=== PATIENT | female | born 1960 | race Caucasian/White ===

== ENCOUNTER 2016-09-05 13:19 | Emergency (ER) | payer SELFPAY ==
[~2016-09-05 13:19] MED LIST: BENA25TA8 PO; BUSP10 PO; HYDR25; PERM5CRE4 TOP
[2016-09-05 13:21] VITALS: BP 117/79; PULSE 99; RESP 20; TEMP 97.5; O2SAT 97
[2016-09-05] MEDS ORDERED: BUSP10TA PO (13:46)
[2016-09-05] MEDS ORDERED: HYDR-755 PO (13:46)
--- NOTE | 2016-09-05 13:53 | PD ---
HPI . nausea Chief Complaint: GI Complaint Time Seen by Provider: 13:53 Travel History International Travel<30 days: No Contact w/Intl Traveler<30days: No Traveled to known affect area: No History of Present Illness HPI 56-year-old female with no past medical history here with complaints of nausea and not feeling herself. Patient tells me that she's been under a lot of stress in dealing with personal issues for over a year and a half and has not had time to focus on herself. She says that she has lost an extreme amount of weight in a short period of time due to poor nutritional habits. Recently she has been trying to do better and drinking nutritional shakes. 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 She denies any episode of vomiting or abdominal pain. She decided to come to the emergency room as the nausea seems to bothering her. She denies any chest pain or shortness of breath. 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) Social History Alcohol Use: Yes ("SELDOM") Tobacco Use: No (NICOTINE GUM) Substance Use: No Allergies-Medications (Allergen,Severity, Reaction): Coded Allergies: No Known Allergies (Unverified , 09/05/16) Reported Meds & Prescriptions Reported Meds & Active Scripts Active Zofran Odt (Ondansetron Odt) 4 Mg Tab 4 Mg SL Q8HR PRN Reported Hydroxyzine HCl 10 Mg Tab 10 Mg PO TID PRN Buspirone (Buspirone HCl) 10 Mg Tab 10 Mg PO DAILY Review of Systems General / Constitutional: No: Fever Eyes: No: Visual changes HENT: No: Headaches Cardiovascular: No: Chest Pain or Discomfort Respiratory: No: Shortness of Breath Gastrointestinal: Positive: Nausea, No: Vomiting, Diarrhea, Abdominal Pain Genitourinary: No: Dysuria Musculoskeletal: No: Pain Skin: No Rash Neurologic: No: Weakness Psychiatric: No: Depression Endocrine: No: Polydipsia Hematologic/Lymphatic: No: Easy Bruising Physical Exam Narrative GENERAL: AAO x 3, no acute distress, thin appearing, SKIN: Warm and dry. No visible rashes or bruising. HEAD: Normocephalic and atraumatic. EYES: No scleral icterus. No injection or drainage. EOM intact, PERRLA ENT: No nasal drainage noted. Mucous membranes pink. Airway patent. Slightly dry mucous membranes NECK: Supple, trachea midline. No JVD. No lymphadenopathy CARDIOVASCULAR: Regular rate and rhythm without murmurs, gallops, or rubs. RESPIRATORY: Breath sounds equal bilaterally. No accessory muscle use. No rhonchi or rales. GASTROINTESTINAL: Abdomen soft, non-tender, nondistended. EXTREMITIES: No cyanosis or edema. BACK: Nontender without obvious deformity. No CVA tenderness. NEURO: CN II-12 intact, mining professionals strength normal b/l, UE and LE 5/5, no focal deficits PSYCH: AAO x 3, normal affect. Data Data Last Documented VS Vital Signs Date Time Temp Pulse Resp B/P Pulse Ox O2 Delivery O2 Flow Rate FiO2 09/05/16 13:21 97.5 99 20 117/79 97 Room Air Orders Complete Blood Count With Diff (09/05/16 13:57) Comprehensive Metabolic Panel (09/05/16 13:57) Urinalysis - C+S If Indicated (09/05/16 13:57) Iv Access Insert/Monitor (09/05/16 13:57) Ondansetron Inj (Zofran Inj) (09/05/16 14:00) Sodium Chlor 0.9% 1000 Ml Inj (Ns 1000 M (09/05/16 13:57) Sodium Chloride 0.9% Flush (Ns Flush) (09/05/16 14:00) Labs Laboratory Tests Test 09/05/16 09/05/16 14:05 14:15 Urine Color YELLOW Urine Turbidity CLEAR Urine pH 5.5 Urine Specific [place] 1.026 Urine Protein TRACE mg/dL Urine Glucose (UA) NEG mg/dL Urine Ketones NEG mg/dL Urine Occult Blood MOD Urine Nitrite NEG Urine Bilirubin NEG Urine Urobilinogen 2.0 MG/DL Urine Leukocyte Esterase NEG Urine RBC 7 /hpf Urine WBC 2 /hpf Urine Mucus FEW /lpf Microscopic Urinalysis Comment CULT NOT INDICATED White Blood Count 6.4 TH/MM3 Red Blood Count 4.36 MIL/MM3 Hemoglobin 13.1 GM/DL Hematocrit 39.7 % Mean Corpuscular Volume 91.0 FL Mean Corpuscular Hemoglobin 30.0 PG Mean Corpuscular Hemoglobin 33.0 % Concent Red Cell Distribution Width 13.4 % Platelet Count 192 TH/MM3 Mean Platelet Volume 8.8 FL Neutrophils (%) (Auto) 64.7 % Lymphocytes (%) (Auto) 26.9 % Monocytes (%) (Auto) 6.4 % Eosinophils (%) (Auto) 1.1 % Basophils (%) (Auto) 0.9 % Neutrophils # (Auto) 4.1 TH/MM3 Lymphocytes # (Auto) 1.7 TH/MM3 Monocytes # (Auto) 0.4 TH/MM3 Eosinophils # (Auto) 0.1 TH/MM3 Basophils # (Auto) 0.1 TH/MM3 CBC Comment DIFF FINAL Differential Comment Sodium Level 142 MEQ/L Potassium Level 3.9 MEQ/L Chloride Level 108 MEQ/L Carbon Dioxide Level 26.7 MEQ/L Anion Gap 7 MEQ/L Blood Urea Nitrogen 13 MG/DL Creatinine 0.71 MG/DL Estimat Glomerular Filtration 86 ML/MIN Rate Random Glucose 96 MG/DL Calcium Level 8.5 MG/DL Total Bilirubin 0.2 MG/DL Aspartate Amino Transf 20 U/L (AST/SGOT) Alanine Aminotransferase 26 U/L (ALT/SGPT) Alkaline Phosphatase 53 U/L Total Protein 6.3 GM/DL Albumin 3.3 GM/DL [facility] Medical Decision Making Medical Screen Exam Complete: Yes Emergency Medical Condition: Yes Medical Record Reviewed: Yes Differential Diagnosis Nausea without vomiting, anxiety, depression Narrative Course 56-year-old female here with complaints of nausea. She is under a lot of stress. I have done some labs on her. I've given her some Zofran. She also appears little dehydrated select given her some IV fluids. Examination is unremarkable. I do not suspect there will be any gross abnormalities on lab other than possible low albumin secondary her poor nutritional intake. I think a lot of her issues are possibly related to underlying depression and anxiety. Discussed normal results with patient. Low albumin and protein as suspected. Encouraged her to eat better. F/U with primary care doctor. Patient verbalized understanding of instructions, questions were answered, and thanked me for their care. I advised them if their condition worsens, please return to the nearest emergency room for further care. Diagnosis Primary Impression: Nausea Patient Instructions: General Instructions Additional Instructions: Please return to emergency department if your symptoms return or worsen. Follow up with your primary care provider. Take medications as prescribed. Med/Other Pt SpecificInfo: Prescription(s) given Scripts Ondansetron Odt (Zofran Odt)4 Mg Tab4 Mg SL Q8HR PRN (Nausea/Vomiting) #12 TAB Ref 0 Prov:Nae Kapoor MD 09/05/16 Disposition: 01 DISCHARGE HOME Condition: Stable Suyapa Muse Sep 05, 2016 13:53
[2016-09-05] MEDS ORDERED: SODIUM CHLOR 0.9% 1000 ML INJ 1,000 ML IV ONE (13:57)
[2016-09-05] MEDS ORDERED: SODIUM CHLORIDE 0.9% FLUSH 10 ML FLUSH IVF PRN (14:00)
[2016-09-05] MEDS ORDERED: ONDANSETRON HCL 4 MG/2 ML VIAL IVP ONE (14:00)
[2016-09-05 14:38] LABS: AUTOMATED NEUTROPHIL # 4.1 TH/MM3 (1.8-7.7); BASOPHIL # 0.1 TH/MM3 (0-0.2); BASOPHIL % 0.9 % (0.0-2.0); EOSINOPHIL # 0.1 TH/MM3 (0-0.4); EOSINOPHIL % 1.1 % (0.0-4.0); HEMATOCRIT 39.7 % (35.0-46.0); HEMO FLAGS DIFF FINAL; LYMPH % 26.9 % (9.0-44.0); LYMPHOCYTE # 1.7 TH/MM3 (1.0-4.8); MONO % 6.4 % (0.0-8.0); NEUT % 64.7 % (16.0-70.0); PLATELET COUNT 192 TH/MM3 (150-450); RED BLOOD COUNT 4.36 MIL/MM3 (4.00-5.30); RED CELL DISTRIBUTION WIDTH 13.4 % (11.6-17.2); WHITE BLOOD COUNT 6.4 TH/MM3 (4.0-11.0)
[2016-09-05 14:41] LABS: BLOOD, URINE MOD (NEG); COMMENT (UR) CULT NOT INDICATED; CULTURE IF INDICATED CULT NOT INDICATED; GLUCOSE,URINE NEG (NEG); KETONE, URINE NEG (NEG); MUCUS URINE FEW /lpf (OCC); NITRITE,URINE NEG (NEG); PH, URINE 5.5 (5.0-8.5); URINE COLOR YELLOW (YELLW/STRAW)
[2016-09-05 15:08] LABS: ALKALINE PHOSPHATASE 53 U/L (45-117); TOTAL BILIRUBIN ADULT 0.2 MG/DL (0.2-1.0)
[2016-09-05 15:09] LABS: ALT (GPT) 26 U/L (10-53); ANION GAP 7 MEQ/L (5-15); AST (GOT) 20 U/L (15-37); BICARBONATE 26.7 MEQ/L (21.0-32.0); BLOOD UREA NITROGEN 13 MG/DL (7-18); CHLORIDE 108 MEQ/L (98-107); GLOMERULAR FILTRATION RATE 86 ML/MIN (>89); POTASSIUM 3.9 MEQ/L (3.5-5.1); SODIUM (NA) 142 MEQ/L (136-145)
[2016-09-05] MEDS ORDERED: ZOFR4TAB3 SL (15:09)
== END 2016-09-05 15:52 | disposition home or self-care (01) ==
LOC: NEPD 13:19
DX: R11.0 Nausea (principal)
CPT/HCPCS: 80053; 81001; 85025; 96374; 99284; J2405; J7030

== ENCOUNTER 2016-10-24 06:04 | Emergency (ER) | payer SELFPAY ==
[~2016-10-24] VITALS: Ht 170.2 cm; Wt 45.0 kg
[~2016-10-24 06:04] MED LIST changes: -BENA25TA8 PO; -BUSP10 PO; +BUSP10TA PO; +HYDR-755 PO; -HYDR25; -PERM5CRE4 TOP; +ZOFR4TAB3 SL
[2016-10-24 06:15] VITALS: BP 132/82; PULSE 97; RESP 18; TEMP 98; O2SAT 95
[2016-10-24] MEDS ORDERED: SODIUM CHLORIDE 0.9% FLUSH 10 ML FLUSH IVF PRN (06:15)
[2016-10-24] MEDS ORDERED: methylPREDNISolone SOD SUCC 125 MG/2 ML VIAL IVP ONE (06:15)
[2016-10-24 06:17] VITALS: RESP 18; O2SAT 95
[2016-10-24] MEDS: RESP: ALBUTEROL 2.5 MG/IPRATROPIUM 0.5 MG NEB (SCH) INH ×2 (06:18→06:19)
--- NOTE | 2016-10-24 06:20 | PD ---
HPI Chief Complaint: Respiratory Symptoms Time Seen by Provider: 06:11 Travel History International Travel<30 days: No Contact w/Intl Traveler<30days: No Traveled to known affect area: No History of Present Illness HPI The patient is a 56-year-old female that has had a cough and shortness of breath for 4 days. She states she smokes less than one half pack a day. She comes in tonight because of shortness of breath. She was put on amoxicillin 500 mg 3 times daily yesterday. She has not had an x-ray. She denies any fever or chest pain. She does not have a nebulizer at home. 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 The temperature 98.0, pulse rate 97, respirations 18 with 95% oximetry and blood pressure 132/82. SKIN: Focused skin assessment warm/dry. HEAD: Atraumatic. Normocephalic. EYES: Pupils equal and round. No scleral icterus. No injection or drainage. ENT: No nasal bleeding or discharge. Mucous membranes pink and moist. NECK: Trachea midline. No JVD. CARDIOVASCULAR: Regular rate and rhythm. No murmur appreciated. RESPIRATORY: No accessory muscle use. Bilateral diminished breath sounds. Breath sounds equal bilaterally. GASTROINTESTINAL: Abdomen soft, non-tender, nondistended. Hepatic and splenic margins not palpable. MUSCULOSKELETAL: No obvious deformities. No clubbing. No cyanosis. No edema. NEUROLOGICAL: Awake and alert. No obvious cranial nerve deficits. Motor grossly within normal limits. Normal speech. PSYCHIATRIC: The patient is angry and initially stated she did not smoke at all but later admitted she smoked less than one half pack a day; insight and judgment normal. Data Data Last Documented VS Vital Signs Date Time Temp Pulse Resp B/P Pulse Ox O2 Delivery O2 Flow Rate FiO2 10/24/16 06:17 95 Room Air 10/24/16 06:17 18 10/24/16 06:17 97 10/24/16 06:15 98.0 132/82 Orders Complete Blood Count With Diff (10/24/16 06:11) Basic Metabolic Panel (Bmp) (10/24/16 06:11) Arterial Blood Gas (Abg) (10/24/16 06:11) Iv Access Insert/Monitor (10/24/16 06:11) Ecg Monitoring (10/24/16 06:11) Oximetry (10/24/16 06:11) Oxygen Administration (10/24/16 06:11) Chest, Pa & Lat (10/24/16 06:11) Sodium Chloride 0.9% Flush (Ns Flush) (10/24/16 06:15) Methylprednisolone So Succ Inj (Solumedr (10/24/16 06:15) Albuterol-Ipratropium Neb (Duoneb Neb) (10/24/16 06:15) Labs Laboratory Tests Test 10/24/16 10/24/16 06:21 06:25 Blood Gas Puncture Site RT BRACHIAL Blood Gas Patient Temperature 98.6 Blood Gas HCO3 24 mmol/L Blood Gas Base Excess 0.2 mmol/L Blood Gas Oxygen Saturation 92 % Arterial Blood pH 7.41 Arterial Blood Partial 40 mmHG Pressure CO2 Arterial Blood Partial 76 mmHG Pressure O2 Arterial Blood Oxygen Content 18.1 Vol % Arterial Blood 2.6 % Carboxyhemoglobin Arterial Blood Methemoglobin 1.0 % Blood Gas Hemoglobin 13.9 G/DL Oxygen Delivery Device ROOM AIR Blood Gas Inspired Oxygen 21 % White Blood Count 5.4 TH/MM3 Red Blood Count 4.63 MIL/MM3 Hemoglobin 13.7 GM/DL Hematocrit 40.6 % Mean Corpuscular Volume 87.7 FL Mean Corpuscular Hemoglobin 29.5 PG Mean Corpuscular Hemoglobin 33.7 % Concent Red Cell Distribution Width 15.9 % Platelet Count 204 TH/MM3 Mean Platelet Volume 8.4 FL Neutrophils (%) (Auto) 78.6 % Lymphocytes (%) (Auto) 11.7 % Monocytes (%) (Auto) 8.1 % Eosinophils (%) (Auto) 0.7 % Basophils (%) (Auto) 0.9 % Neutrophils # (Auto) 4.4 TH/MM3 Lymphocytes # (Auto) 0.6 TH/MM3 Monocytes # (Auto) 0.4 TH/MM3 Eosinophils # (Auto) 0.0 TH/MM3 Basophils # (Auto) 0.0 TH/MM3 CBC Comment DIFF FINAL Differential Comment MDM Medical Decision Making Medical Screen Exam Complete: Yes Emergency Medical Condition: Yes Medical Record Reviewed: Yes Differential Diagnosis Bronchitis, pneumonia, COPD with acute exacerbation, asthmaunlikely Narrative Course It is now 0650 and the patient is transferred to Dr. Daryl Vasquez. Nathaniel Deleon MD Oct 24, 2016 06:20
[2016-10-24 06:31] LABS: BLOOD GAS BASE EXCESS 0.2 mmol/L (-2-2); BLOOD GAS CARBOXYHEMOGLOBIN 2.6 % (0-4); BLOOD GAS HCO3 24 mmol/L (22-26); BLOOD GAS O2 HGB SATURATION 92 % (90-100); BLOOD GAS OXYGEN CONTENT 18.1 Vol % (12.0-20.0); BLOOD GAS PCO2 40 mmHG (38-42); BLOOD GAS PO2 76 mmHG (61-120); BLOOD GAS TOTAL HGB 13.9 G/DL (12.0-16.0); CRITICAL VALUE NO; DRAW SITE RT BRACHIAL; FIO2 21 %; NUMBER OF ARTERIAL PUNCTURES 1; OXYGEN DEVICE ROOM AIR; STAT YES; TEMP CORR TO 98.6
[2016-10-24 06:47] LABS: AUTOMATED NEUTROPHIL # 4.4 TH/MM3 (1.8-7.7); BASOPHIL % 0.9 % (0.0-2.0); EOSINOPHIL % 0.7 % (0.0-4.0); HEMATOCRIT 40.6 % (35.0-46.0); HEMO FLAGS DIFF FINAL; LYMPH % 11.7 % (9.0-44.0); LYMPHOCYTE # 0.6 TH/MM3 (1.0-4.8); MEAN CELL VOLUME 87.7 FL (80.0-100.0); MEAN CORPUSCULAR HEMOGLOBIN 29.5 PG (27.0-34.0); MEAN CORPUSCULAR HGB CONC 33.7 % (32.0-36.0); MONO % 8.1 % (0.0-8.0); NEUT % 78.6 % (16.0-70.0); PLATELET COUNT 204 TH/MM3 (150-450); RED BLOOD COUNT 4.63 MIL/MM3 (4.00-5.30); RED CELL DISTRIBUTION WIDTH 15.9 % (11.6-17.2); WHITE BLOOD COUNT 5.4 TH/MM3 (4.0-11.0)
[2016-10-24 06:55] LABS: POTASSIUM 4.1 MEQ/L (3.5-5.1)
[2016-10-24 06:59] LABS: BICARBONATE 26.6 MEQ/L (21.0-32.0)
--- NOTE | 2016-10-24 07:08 | PD ---
Physical Exam Date Seen by Provider: Oct 24, 2016 Time Seen by Provider: 07:04 Narrative The patient is a 56-year-old female who was initially evaluated by the previous physician, Dr. Deleon. Please refer to the initial history, physical, diagnostic evaluation, and treatment modality plan. The patient was signed out at 7 AM with laboratory evaluation and chest x-ray pending. Data Data Last Documented VS Vital Signs Date Time Temp Pulse Resp B/P Pulse Ox O2 Delivery O2 Flow Rate FiO2 10/24/16 07:41 94 18 112/71 95 Room Air 10/24/16 06:15 98.0 Orders Complete Blood Count With Diff (10/24/16 06:11) Basic Metabolic Panel (Bmp) (10/24/16 06:11) Arterial Blood Gas (Abg) (10/24/16 06:11) Iv Access Insert/Monitor (10/24/16 06:11) Ecg Monitoring (10/24/16 06:11) Oximetry (10/24/16 06:11) Oxygen Administration (10/24/16 06:11) Chest, Pa & Lat (10/24/16 06:11) Sodium Chloride 0.9% Flush (Ns Flush) (10/24/16 06:15) Methylprednisolone So Succ Inj (Solumedr (10/24/16 06:15) Albuterol-Ipratropium Neb (Duoneb Neb) (10/24/16 06:15) Ondansetron Inj (Zofran Inj) (10/24/16 07:15) Sodium Chlorid 0.9% 500 Ml Inj (Ns 500 M (10/24/16 07:15) Labs Laboratory Tests Test 10/24/16 10/24/16 06:21 06:25 Blood Gas Puncture Site RT BRACHIAL Blood Gas Patient Temperature 98.6 Blood Gas HCO3 24 mmol/L Blood Gas Base Excess 0.2 mmol/L Blood Gas Oxygen Saturation 92 % Arterial Blood pH 7.41 Arterial Blood Partial 40 mmHG Pressure CO2 Arterial Blood Partial 76 mmHG Pressure O2 Arterial Blood Oxygen Content 18.1 Vol % Arterial Blood 2.6 % Carboxyhemoglobin Arterial Blood Methemoglobin 1.0 % Blood Gas Hemoglobin 13.9 G/DL Oxygen Delivery Device ROOM AIR Blood Gas Inspired Oxygen 21 % White Blood Count 5.4 TH/MM3 Red Blood Count 4.63 MIL/MM3 Hemoglobin 13.7 GM/DL Hematocrit 40.6 % Mean Corpuscular Volume 87.7 FL Mean Corpuscular Hemoglobin 29.5 PG Mean Corpuscular Hemoglobin 33.7 % Concent Red Cell Distribution Width 15.9 % Platelet Count 204 TH/MM3 Mean Platelet Volume 8.4 FL Neutrophils (%) (Auto) 78.6 % Lymphocytes (%) (Auto) 11.7 % Monocytes (%) (Auto) 8.1 % Eosinophils (%) (Auto) 0.7 % Basophils (%) (Auto) 0.9 % Neutrophils # (Auto) 4.4 TH/MM3 Lymphocytes # (Auto) 0.6 TH/MM3 Monocytes # (Auto) 0.4 TH/MM3 Eosinophils # (Auto) 0.0 TH/MM3 Basophils # (Auto) 0.0 TH/MM3 CBC Comment DIFF FINAL Differential Comment Sodium Level 140 MEQ/L Potassium Level 4.1 MEQ/L Chloride Level 106 MEQ/L Carbon Dioxide Level 26.6 MEQ/L Anion Gap 7 MEQ/L Blood Urea Nitrogen 8 MG/DL Creatinine 0.65 MG/DL Estimat Glomerular Filtration 95 ML/MIN Rate Random Glucose 95 MG/DL Calcium Level 8.8 MG/DL [facility] Medical Record Reviewed: Yes Supervised Visit with CHARANJIT: No Interpretation(s) Chest x-ray reveals marked hyperinflation without infiltrate, pneumothorax, or failure. Laboratory Tests Test 10/24/16 10/24/16 06:21 06:25 Blood Gas Puncture Site RT BRACHIAL Blood Gas Patient Temperature 98.6 Blood Gas HCO3 24 mmol/L Blood Gas Base Excess 0.2 mmol/L Blood Gas Oxygen Saturation 92 % Arterial Blood pH 7.41 Arterial Blood Partial 40 mmHG Pressure CO2 Arterial Blood Partial 76 mmHG Pressure O2 Arterial Blood Oxygen Content 18.1 Vol % Arterial Blood 2.6 % Carboxyhemoglobin Arterial Blood Methemoglobin 1.0 % Blood Gas Hemoglobin 13.9 G/DL Oxygen Delivery Device ROOM AIR Blood Gas Inspired Oxygen 21 % White Blood Count 5.4 TH/MM3 Red Blood Count 4.63 MIL/MM3 Hemoglobin 13.7 GM/DL Hematocrit 40.6 % Mean Corpuscular Volume 87.7 FL Mean Corpuscular Hemoglobin 29.5 PG Mean Corpuscular Hemoglobin 33.7 % Concent Red Cell Distribution Width 15.9 % Platelet Count 204 TH/MM3 Mean Platelet Volume 8.4 FL Neutrophils (%) (Auto) 78.6 % Lymphocytes (%) (Auto) 11.7 % Monocytes (%) (Auto) 8.1 % Eosinophils (%) (Auto) 0.7 % Basophils (%) (Auto) 0.9 % Neutrophils # (Auto) 4.4 TH/MM3 Lymphocytes # (Auto) 0.6 TH/MM3 Monocytes # (Auto) 0.4 TH/MM3 Eosinophils # (Auto) 0.0 TH/MM3 Basophils # (Auto) 0.0 TH/MM3 CBC Comment DIFF FINAL Differential Comment Sodium Level 140 MEQ/L Potassium Level 4.1 MEQ/L Chloride Level 106 MEQ/L Carbon Dioxide Level 26.6 MEQ/L Anion Gap 7 MEQ/L Blood Urea Nitrogen 8 MG/DL Creatinine 0.65 MG/DL Estimat Glomerular Filtration 95 ML/MIN Rate Random Glucose 95 MG/DL Calcium Level 8.8 MG/DL Differential Diagnosis Differential diagnosis includes bronchitis, pneumonia, ACS, congestive heart failure, pulmonary embolism, pleural effusion, URI, viral syndrome. Narrative Course The patient was initially evaluated by the previous physician, Dr. Deleon. Please refer to the initial history, physical, diagnostic evaluation, and treatment modality plan. The patient was signed out at 7 AM with laboratory evaluation and chest x-ray pending. The patient's blood work was unremarkable. The patient states that her primary physician, Dr. Jansen, called her in a prescription for cough medicine and an antibiotic, amoxicillin yesterday. The patient started amoxicillin yesterday. The patient did have mild nausea, was administered normal saline and Zofran. Chest x-rays unremarkable. The patient be discharged home on prednisone and an albuterol inhaler, is advised to finish her antibiotics as previously directed. She will also be provided a work excuse for 2 days. Diagnosis Primary Impression: Bronchitis Patient Instructions: General Instructions Additional Instruction: Work excuse for 2 days. Medications as directed. Finish amoxicillin as previously directed by your primary physician. Please provide the patient copy of her labs and chest x-ray results at discharge. Return if symptoms worsen or progress. Med/Other Pt SpecificInfo: Prescription(s) given Scripts Albuterol 18 GM Inh (Ventolin Hfa 18 GM Inh)90 Mcg/Act Aer2 Puff INH Q4H PRN ( SHORTNESS OF BREATH) #1 INHALER Ref 0 Prov:Daryl Vasquez MD 10/24/16 Prednisone (Deltasone)20 Mg Tab40 Mg PO DAILY 4 Days Ref 0 Prov:Daryl Vasquez MD 10/24/16 Disposition: 01 DISCHARGE HOME Condition: Stable Daryl Vasquez MD Oct 24, 2016 07:08 Daryl Vasquez MD Oct 24, 2016 07:08
[2016-10-24] MEDS ORDERED: SODIUM CHLORID 0.9% 500 ML INJ 500 ML IV ONE (07:15)
[2016-10-24] MEDS ORDERED: ONDANSETRON HCL 4 MG/2 ML VIAL IV PUSH ONE (07:15)
[2016-10-24] MEDS ORDERED: PRED-503 PO (07:27)
[2016-10-24] MEDS ORDERED: VENTAER INH (07:27)
[2016-10-24 07:41] VITALS: BP 112/71; PULSE 94; RESP 18; O2SAT 95
--- NOTE | 2016-10-24 07:59 | RADRPT ---
EXAM DATE/TIME: 10/24/2016 07:00 [facility] COMPARISON: No previous studies available for comparison. INDICATIONS : Short of breath, cough, nausea MEDICAL HISTORY : None. SURGICAL HISTORY : None. ENCOUNTER: Initial ACUITY: 4 - 6 days PAIN SCORE: 0/10 LOCATION: Bilateral chest FINDINGS: There is marked hyperinflation without infiltrate, pneumothorax or failure. The heart and pulmonary vascularity are normal. The portion of the bony skeleton visualized is unremarkable. CONCLUSION: Hyperinflation lies negative Trever Saha MD FACR on October 24, 2016 at 7:57 Board Certified Radiologist. This report was verified electronically.
== END 2016-10-24 08:15 | disposition home or self-care (01) ==
LOC: PHED 06:04
DX: J40 Bronchitis, not specified as acute or chronic (principal); R11.0 Nausea; Z72.0 Tobacco use; Z86.59 Personal history of other mental and behavioral disorders; Z86.79 Personal history of other diseases of the circulatory system
CPT/HCPCS: 36600; 71020; 80048; 82805; 85025; 94640; 94664; 96374; 96375; 99284; J2405; J2930; J7040

== ENCOUNTER 2017-01-13 14:28 | Emergency (ER) | payer SELFPAY ==
[~2017-01-13] VITALS: Ht 167.6 cm; Wt 52.0 kg
[~2017-01-13 14:28] MED LIST changes: +PRED-503 PO; +VENTAER INH; -ZOFR4TAB3 SL
[2017-01-13 14:33] VITALS: BP 113/73; PULSE 90; RESP 18; TEMP 98.1; O2SAT 99
--- NOTE | 2017-01-13 15:13 | PD ---
HPI Chief Complaint: Cardiac Complaint Time Seen by Provider: 14:37 Travel History International Travel<30 days: No Contact w/Intl Traveler<30days: No Traveled to known affect area: No History of Present Illness HPI So 56-year-old woman who presents emergent department complaining of palpitations. Symptoms started while she was sitting during [employer] when symptoms develop. She has a history of arrhythmia in the past has had previous ablations many years ago. She did symptoms intermittently really pretty rarely. Usually they resolve on their own if she relaxes. She otherwise has been feeling generally well. No other complaints. History Past Medical History Medical History: Denies Significant Hx Tetanus Vaccination: > 5 Years Influenza Vaccination: Yes Menopausal: Yes Social History Alcohol Use: Yes ("SELDOM") Tobacco Use: Yes (NICOTINE GUM) Allergies-Medications (Allergen,Severity, Reaction): Coded Allergies: No Known Allergies (Unverified , 01/13/17) Reported Meds & Prescriptions Reported Meds & Active Scripts Active Reported Hydroxyzine HCl 10 Mg Tab 10 Mg PO TID PRN Buspirone (Buspirone HCl) 10 Mg Tab 10 Mg PO DAILY Review of Systems Except as stated in HPI: all other systems reviewed are Neg Physical Exam Narrative GENERAL: Well-appearing 56 year-old woman, no acute distress. SKIN: Focused skin assessment warm/dry. HEAD: Atraumatic. Normocephalic. CARDIOVASCULAR: Regular rate and rhythm. No murmur appreciated. RESPIRATORY: No accessory muscle use. Clear to auscultation. Breath sounds equal bilaterally. GASTROINTESTINAL: Abdomen soft, non-tender, nondistended. Hepatic and splenic margins not palpable. MUSCULOSKELETAL: No obvious deformities. No edema. NEUROLOGICAL: Awake and alert. No obvious cranial nerve deficits. Motor grossly within normal limits. Normal speech. PSYCHIATRIC: Appropriate mood and affect; insight and judgment normal. Data Data Last Documented VS Vital Signs Date Time Temp Pulse Resp B/P (MAP) Pulse Ox O2 Delivery O2 Flow Rate FiO2 01/13/17 14:43 88 17 100 Room Air 01/13/17 14:33 98.1 113/73 (86) Orders Orders Complete Blood Count With Diff (01/13/17 14:37) Basic Metabolic Panel (Bmp) (01/13/17 14:37) Iv Access Insert/Monitor (01/13/17 14:37) Electrocardiogram (01/13/17 ) Labs Laboratory Tests Test 01/13/17 14:50 White Blood Count 6.7 TH/MM3 Red Blood Count 4.25 MIL/MM3 Hemoglobin 13.3 GM/DL Hematocrit 39.0 % Mean Corpuscular Volume 91.6 FL Mean Corpuscular Hemoglobin 31.2 PG Mean Corpuscular Hemoglobin Concent 34.1 % Red Cell Distribution Width 12.9 % Platelet Count 223 TH/MM3 Mean Platelet Volume 8.8 FL Neutrophils (%) (Auto) 62.9 % Lymphocytes (%) (Auto) 29.5 % Monocytes (%) (Auto) 6.4 % Eosinophils (%) (Auto) 0.8 % Basophils (%) (Auto) 0.4 % Neutrophils # (Auto) 4.2 TH/MM3 Lymphocytes # (Auto) 2.0 TH/MM3 Monocytes # (Auto) 0.4 TH/MM3 Eosinophils # (Auto) 0.1 TH/MM3 Basophils # (Auto) 0.0 TH/MM3 CBC Comment DIFF FINAL Differential Comment Blood Urea Nitrogen 14 MG/DL Creatinine 0.90 MG/DL Random Glucose 126 MG/DL Calcium Level 8.7 MG/DL Sodium Level 143 MEQ/L Potassium Level 3.9 MEQ/L Chloride Level 109 MEQ/L Carbon Dioxide Level 30.8 MEQ/L Anion Gap 3 MEQ/L Estimat Glomerular Filtration Rate 65 ML/MIN [facility] Medical Decision Making Medical Screen Exam Complete: Yes Emergency Medical Condition: Yes Interpretation(s) My review of EKG: Regular in her complex rhythm at a rate of 87, I think this is sinus rhythm. I don't see buried P waves. T-wave axis maybe a little bit abnormal. There is variability in the heart rate suggesting against a fixed arrhythmia. LABS: CBC is unremarkable. BMP is unremarkable. Differential Diagnosis Palpitations, arrhythmia, R abnormality, anxiety, other Narrative Course Medical decision-making 66 old woman who presents to the emergency department complaining of palpitations. She looks well. There is heart rates normal. EKG shows we'll interpret to be sinus rhythm. Computer is reading atrial flutter tachycardia but I just don't see any. P waves are extra systolic beats. We'll check labs, reassess. Diagnosis Primary Impression: Heart palpitations Additional Instructions: Follow-up with her primary doctor in next 2-4 days. Return to the emergency department for any new or worsening symptoms. Disposition: 01 DISCHARGE HOME Condition: Stable Gumaro Claire MD Jan 13, 2017 15:13
[2017-01-13 15:14] LABS: AUTOMATED NEUTROPHIL # 4.2 TH/MM3 (1.8-7.7); BASOPHIL % 0.4 % (0.0-2.0); EOSINOPHIL # 0.1 TH/MM3 (0-0.4); EOSINOPHIL % 0.8 % (0.0-4.0); HEMO FLAGS DIFF FINAL; LYMPH % 29.5 % (9.0-44.0); MEAN CELL VOLUME 91.6 FL (80.0-100.0); MEAN CORPUSCULAR HEMOGLOBIN 31.2 PG (27.0-34.0); MEAN CORPUSCULAR HGB CONC 34.1 % (32.0-36.0); MONO % 6.4 % (0.0-8.0); NEUT % 62.9 % (16.0-70.0); PLATELET COUNT 223 TH/MM3 (150-450); RED BLOOD COUNT 4.25 MIL/MM3 (4.00-5.30); RED CELL DISTRIBUTION WIDTH 12.9 % (11.6-17.2); WHITE BLOOD COUNT 6.7 TH/MM3 (4.0-11.0)
[2017-01-13 15:43] LABS: BICARBONATE 30.8 MEQ/L (21.0-32.0); POTASSIUM 3.9 MEQ/L (3.5-5.1)
[2017-01-13 16:05] VITALS: BP 120/76; TEMP 97.8
--- NOTE | 2017-01-14 12:45 | EKG ---
Date Performed: 01/13/2017 Time Performed: 14:32:24 PTAGE: 56 years EKG: Normal Sinus rhythm Possible left atrial abnormality PREVIOUS TRACING 09/24/14 Otherwise, no change from the prior tracing DOCTOR: Gordo Lezama Interpretating Date/Time 01/14/2017 12:45:11
== END 2017-01-13 16:11 | disposition home or self-care (01) ==
LOC: NEPD 14:28
DX: R00.2 Palpitations (principal); Z72.0 Tobacco use
CPT/HCPCS: 80048; 85025; 93005; 99284

== ENCOUNTER 2017-04-08 20:37 | Emergency (ER) | payer OTHER ==
[~2017-04-08 20:37] MED LIST changes: -PRED-503 PO; -VENTAER INH
[2017-04-09] MEDS ORDERED: CYCL10TA PO (10:30)
== END 2017-04-08 21:08 | disposition left against medical advice (07) ==
LOC: PHED 20:37
DX: Z04.1 Encounter for examination and observation following transport accident (principal)
CPT/HCPCS: 99281

== ENCOUNTER 2017-04-09 09:52 | Emergency (ER) | payer OTHER ==
[~2017-04-09] VITALS: Ht 167.6 cm; Wt 48.3 kg
[2017-04-09 09:58] VITALS: BP 140/65; PULSE 78; RESP 16; TEMP 97.8; O2SAT 99
[2017-04-09] MEDS ORDERED: CYCL10TA PO (10:30)
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
[2017-04-09 10:46] VITALS: BP 128/85
== END 2017-04-09 11:10 | disposition home or self-care (01) ==
LOC: PHEFT 09:52
DX: S16.1XXA Strain of muscle, fascia and tendon at neck level, initial encounter (principal); F41.8 Other specified anxiety disorders; Z86.79 Personal history of other diseases of the circulatory system; Z87.891 Personal history of nicotine dependence; V89.2XXA Person injured in unspecified motor-vehicle accident, traffic, initial encounter
CPT/HCPCS: 99283

== ENCOUNTER 2018-02-09 20:50 | Observation (INO) ==
[2018-02-09] MEDS ORDERED: Sodium Chlor 0.9% Inj 500 ML IV.SIG ONE (21:10)
--- NOTE | 2018-02-09 21:16 | ED ---
HPI General Chief Complaint: Respiratory Symptoms Stated Complaint: Sinus Infection/Chest Tightness x3Days Time Seen by Provider: 02/09/18 20:59 Source: patient Mode of arrival: ambulatory Limitations: no limitations History of Present Illness HPI narrative: The patient is a 57-year-old female who presents to the emergency department via private vehicle for chest pain. The patient states she was recently diagnosed with sinusitis, took amoxicillin, however, this did not improve her symptoms. She then saw Dr. Jansen, her primary physician, earlier this week who placed her on Zithromax. The patient stated she has some chest tightness at that time that was attributed to possible sinusitis and/or bronchitis. The patient states the chest pain is substernal, described as "tightness ", and "heaviness ". The patient states the chest pain is worse with exertion, alleviated at rest. The patient also feels like she has something sitting on her chest when she takes a deep breath. The patient does have a history of early COPD, quit smoking 1 year ago. The patient denies any history of hypertension, hyperlipidemia, CAD, diabetes, or significant family history for early CAD. The patient has never had a stress test. The patient denies any current wheezing or cough. Symptoms are moderate. MD complaint: Reports chest pain Onset (ago): day(s) Duration: intermittent Onset: during exertion Pain location: Reports substernal Severity: moderate Severity scale (1-10): 6 Quality: Reports tightness and heaviness Pain radiation: Reports none Relieving factors: rest Exacerbating factors: exertion and inspiration Context: Reports recent illness Associated symptoms: Reports dyspnea Treatments prior to arrival chest pain: Reports none Related Data On Oral Contraceptives: No Home Medications Medication Instructions Recorded Confirmed hydroxyzine HCl 25 mg PO DAILY 10/23/17 02/09/18 levothyroxine 50 mcg PO DAILY 10/23/17 02/09/18 docusate sodium 50 mg DIRECTED 02/09/18 02/09/18 nicotine (polacrilex) 4 mg DAILY 02/09/18 02/09/18 Allergies Allergy/AdvReac Type Severity Reaction Status Date / Time No Known Allergies Allergy Verified 02/09/18 21:49 Review of Systems ROS: all other systems reviewed are negative [facility] Medical History Medical History COPD (chronic obstructive pulmonary disease) (Acute) Hypothyroidism (Acute) SVT (supraventricular tachycardia) (Acute) Surgical History Surgical History H/O tubal ligation (Acute) H/O prior ablation treatment (Acute) Social History Social History Substance History: No History of Abuse Second Hand Smoke Exposure: No Smoking Status: Former smoker Tobacco Type: Cigarettes How Often Do You Have a Drink Containing Alcohol: Never Recent Travel in [facility] within the Last 8 Weeks: No Recent Out of Country Travel within the Last 8 Weeks: No Exam Narrative Exam Narrative: GENERAL: Awake, alert, pleasant 57-year-old female who appears her stated age and is in no acute respiratory distress. Thin build. SKIN: Focused skin assessment warm/dry. HEAD: Atraumatic. Normocephalic. EYES: Pupils equal and round. No scleral icterus. No injection or drainage. ENT: No nasal bleeding or discharge. Mucous membranes pink and moist. NECK: Trachea midline. No JVD. CARDIOVASCULAR: Regular rate and rhythm. No murmur appreciated. RESPIRATORY: No accessory muscle use. Clear to auscultation. Breath sounds equal bilaterally. No wheezes, rales, or rhonchi noted. GASTROINTESTINAL: Abdomen soft, non-tender, nondistended. No epigastric tenderness. MUSCULOSKELETAL: No obvious deformities. No clubbing. No cyanosis. No edema. NEUROLOGICAL: Awake and alert. No obvious cranial nerve deficits. Motor grossly within normal limits. Normal speech. PSYCHIATRIC: Appropriate mood and affect; insight and judgment normal. Course Initial Documented Vital Signs Temperature 97.9 F 02/09/18 20:54 Pulse Rate 90 02/09/18 20:54 Respiratory Rate 18 02/09/18 20:54 Blood Pressure 117/78 02/09/18 20:54 Pulse Oximetry 97 02/09/18 20:54 Last Documented Vital Signs Temperature 97.9 F 02/09/18 20:54 Pulse Rate 80 02/09/18 22:40 Respiratory Rate 18 02/09/18 22:40 Blood Pressure 119/77 02/09/18 22:40 Pulse Oximetry 99 02/09/18 22:40 Clinical Decision Support PERC Rule Age greater than or equal to 50: Yes HR greather than or equal to 100: No Sa02 on room air is less than 95%: No Unilateral Leg Swelling: No Hemoptysis: No Recent Surgery or Trauma: No Prior PE or DVT: No Hormone Use: No Medical Decision Making MDM Narrative Medical decision making narrative: IV was established, labs were drawn and sent , and the patient was placed on cardiac telemetry monitoring and continuous pulse oximetry monitoring. EKG was ordered and interpreted. Chest x-ray was obtained. The patient was administered aspirin, Nitropaste, and IV fluids. The patient has no hypoxia or tachycardia, I doubt pulmonary embolism. However , the patient could not be ruled out with PERC criteria secondary to age, therefore, d-dimer was sent to lab. The patient's chest x-ray reveals no acute changes. D-dimer was 0.42, therefore, no indication for CT pulmonary angiogram. The patient's initial troponin was negative. I had a discussion with the patient at 10:15 PM regarding her negative workup and possibilities including acute coronary syndrome with exertional dyspnea and chest tightness of 3 days duration with no pulmonary symptoms such as cough or fever. After discussion with the patient it was agreed that she would be a 23-hour observation to the chest pain center for serial cardiac enzymes and possible stress test in the morning. I discussed the patient with Dr. Lawler who agrees with 23-hour observation. Medical Screen Exam Complete: Yes Emergency Medical Condition: Yes Lab Data Lab results reviewed: Yes I reviewed the patient's lab results. Result diagrams: 02/09/18 21:18 02/09/18 21:18 Lab Results 02/09/18 02/09/18 02/09/18 Range/Units 21:18 21:18 21:18 CBC w Diff Auto diff final WBC 5.7 (4.0-11.0) th/mm3 RBC 4.32 (4.00-5.30) mil/mm3 Hgb 13.0 (11.6-15.3) gm/dL Hct 39.8 (35.0-46.0) % MCV 92.2 (80.0-100.0) fL MCH 30.1 (27.0-34.0) pg MCHC 32.7 (32.0-36.0) % RDW 12.5 (11.6-17.2) % Plt Count 234 (150-450) th/mm3 MPV 8.7 (7.0-11.0) fL Neut % (Auto) 56.1 (16.0-70.0) % Lymph % (Auto) 34.0 (9.0-44.0) % Toole % (Auto) 7.5 (0.0-8.0) % Eos % (Auto) 1.2 (0.0-4.0) % Baso % (Auto) 1.2 (0.0-2.0) % Neut # (Auto) 3.2 (1.8-7.7) th/mm3 Lymph # (Auto) 1.9 (1.0-4.8) th/mm3 Toole # (Auto) 0.4 (0.0-0.9) th/mm3 Eos # (Auto) 0.1 (0.0-0.4) th/mm3 Baso # (Auto) 0.1 (0.0-0.2) th/mm3 WBC Differential . Differential Comment . PT (9.8-11.6) sec INR Ratio APTT (23.4-31.7) sec D-Dimer Quant (PE/DVT) (0.00-0.50) mg/L FEU Sodium 142 (136-145) meq/L Potassium 3.5 (3.5-5.1) meq/L Chloride 107 (98-107) meq/L Carbon Dioxide 28.4 (21.0-32.0) meq/L Anion Gap 7 (5-15) meq/L BUN 11 (7-18) mg/dL Creatinine 0.96 (0.50-1.00) mg/dL Estimated GFR 60 L (>89) mL/min Random Glucose 105 (74-106) mg/dL Calcium 8.2 L (8.5-10.1) mg/dL Magnesium (1.5-2.5) mg/dL Total Bilirubin 0.3 (0.2-1.0) mg/dL AST 20 (15-37) U/L ALT 25 (10-53) U/L Alkaline Phosphatase 51 (45-117) U/L Total Creatine Kinase 67 (26-192) U/L Troponin I Less than 0.02 L (0.02-0.05) ng/mL B-Natriuretic Peptide 4 (0-100) pg/mL Total Protein 6.6 (6.4-8.2) g/dL Albumin 3.5 (3.4-5.0) g/dL Lipase 194 (73-393) U/L 02/09/18 02/09/18 02/09/18 Range/Units 21:18 21:18 21:18 CBC w Diff WBC (4.0-11.0) th/mm3 RBC (4.00-5.30) mil/mm3 Hgb (11.6-15.3) gm/dL Hct (35.0-46.0) % MCV (80.0-100.0) fL MCH (27.0-34.0) pg MCHC (32.0-36.0) % RDW (11.6-17.2) % Plt Count (150-450) th/mm3 MPV (7.0-11.0) fL Neut % (Auto) (16.0-70.0) % Lymph % (Auto) (9.0-44.0) % Toole % (Auto) (0.0-8.0) % Eos % (Auto) (0.0-4.0) % Baso % (Auto) (0.0-2.0) % Neut # (Auto) (1.8-7.7) th/mm3 Lymph # (Auto) (1.0-4.8) th/mm3 Toole # (Auto) (0.0-0.9) th/mm3 Eos # (Auto) (0.0-0.4) th/mm3 Baso # (Auto) (0.0-0.2) th/mm3 WBC Differential Differential Comment PT 11.1 (9.8-11.6) sec INR 1.1 Ratio APTT 28.0 (23.4-31.7) sec D-Dimer Quant (PE/DVT) 0.42 (0.00-0.50) mg/L FEU Sodium (136-145) meq/L Potassium (3.5-5.1) meq/L Chloride (98-107) meq/L Carbon Dioxide (21.0-32.0) meq/L Anion Gap (5-15) meq/L BUN (7-18) mg/dL Creatinine (0.50-1.00) mg/dL Estimated GFR (>89) mL/min Random Glucose (74-106) mg/dL Calcium (8.5-10.1) mg/dL Magnesium 1.9 (1.5-2.5) mg/dL Total Bilirubin (0.2-1.0) mg/dL AST (15-37) U/L ALT (10-53) U/L Alkaline Phosphatase (45-117) U/L Total Creatine Kinase (26-192) U/L Troponin I (0.02-0.05) ng/mL B-Natriuretic Peptide (0-100) pg/mL Total Protein (6.4-8.2) g/dL Albumin (3.4-5.0) g/dL Lipase (73-393) U/L Imaging Data Radiologist's impression: Chest X-Ray 02/09/18 21:10 CONCLUSION: The lungs are clear. ECG Data EKG Prior to Arrival: No Attestation: I personally reviewed and interpreted this ECG as follows: Interpretation: EKG reveals normal sinus rhythm with a rate of 75. No ectopy noted. Discharge Plan Discharge Disposition Patient Disposition: 30 Still Patient Discharge Condition Condition: Stable Discharge Details Diagnosis: Chest pain Physicians Team ED Provider: Daryl Vasquez Primary Care Provider: Adrian Jansen Rxs /Orders / Referrals /Forms Prescriptions: No Action levothyroxine 50 mcg Tablet 50 mcg PO DAILY RF: 0 hydroxyzine HCl 25 mg Tablet 25 mg PO DAILY RF: 0 docusate sodium 50 mg Capsule 50 mg DIRECTED RF: 0 nicotine (polacrilex) 4 mg Gum 4 mg DAILY RF: 0 Status ED Status: Admitted Observation Patient
[2018-02-09 21:29] LABS: Baso # (Auto) 0.1 th/mm3 (0.0-0.2); Baso % (Auto) 1.2 % (0.0-2.0); Eos # (Auto) 0.1 th/mm3 (0.0-0.4); Eos % (Auto) 1.2 % (0.0-4.0); Hematocrit 39.8 % (35.0-46.0); Lymph # (Auto) 1.9 th/mm3 (1.0-4.8); Mean Corpuscular HGB Conc 32.7 % (32.0-36.0); Mean Corpuscular Hemoglobin 30.1 pg (27.0-34.0); Mean Corpuscular Volume 92.2 fL (80.0-100.0); Mean Platelet Volume 8.7 fL (7.0-11.0); Mono # (Auto) 0.4 th/mm3 (0.0-0.9); Mono % (Auto) 7.5 % (0.0-8.0); Neut # (Auto) 3.2 th/mm3 (1.8-7.7); Neut % (Auto) 56.1 % (16.0-70.0); Platelet Count 234 th/mm3 (150-450); Red Blood Count 4.32 mil/mm3 (4.00-5.30); Red Cell Distribution Width 12.5 % (11.6-17.2); White Blood Count 5.7 th/mm3 (4.0-11.0)
[2018-02-09 21:39] LABS: Chloride 107 meq/L (98-107); Potassium 3.5 meq/L (3.5-5.1); Sodium 142 meq/L (136-145)
[2018-02-09 21:42] LABS: Calcium 8.2 mg/dL (8.5-10.1); INR 1.1 Ratio; Prothrombin Time 11.1 sec (9.8-11.6)
--- NOTE | 2018-02-09 21:42 | XR ---
EXAM DATE: 02/09/2018 9:38 PM EST AGE/SEX: 57 years / Female INDICATIONS: Short of breath, chest tightness. CLINICAL DATA: This is the patient's initial encounter. Patient reports that signs and symptoms have been present for 3 days and indicates a pain score of 5/10. MEDICAL/SURGICAL HISTORY: None. None. COMPARISON: [facility], CHEST 1V SINGLE AP, 10/23/2017. . FINDINGS: A single AP view of the chest demonstrates the lungs to be symmetrically aerated without evidence of mass, infiltrate or effusion. No evidence of pneumothorax. The cardiomediastinal contours are unrema rkable. Osseous structures are intact. CONCLUSION: The lungs are clear. Electronically signed by: Vinod Ding MD 02/09/2018 9:41 PM EST
[2018-02-09 21:43] LABS: Albumin 3.5 g/dL (3.4-5.0); Anion Gap 7 meq/L (5-15); Blood Urea Nitrogen 11 mg/dL (7-18); Carbon Dioxide 28.4 meq/L (21.0-32.0); Glucose,Random 105 mg/dL (74-106); Lipase 194 U/L (73-393)
[2018-02-09 21:46] LABS: Alanine Aminotransferase 25 U/L (10-53); Aspartate Aminotransferase 20 U/L (15-37); Glomerular Filtration Rate 60 mL/min (>89)
[2018-02-09 21:48] LABS: Total Protein 6.6 g/dL (6.4-8.2)
[2018-02-09 21:49] LABS: Alkaline Phosphatase 51 U/L (45-117)
[2018-02-09 22:03] LABS: Creatine Kinase 67 U/L (26-192)
[2018-02-09] MEDS ORDERED: Temazepam 15 MG Capsule PO PRN (22:52)
[2018-02-09] MEDS: Heparin - SQ 10,000 UNITS/ML Vial SQ SCH (23:25)
[2018-02-09] MEDS ORDERED: Morphine Sulfate Inj 2 MG/ML Vial IV.PUSH PRN (23:30)
[2018-02-10 01:08] LABS: Creatine Kinase 55 U/L (26-192)
[2018-02-10] MEDS: Acetaminophen 500 MG Tablet PO PRN ×2 (03:34→11:16)
[2018-02-10 04:30] VITALS: O2SAT 95
[2018-02-10 04:54] LABS: Creatine Kinase 52 U/L (26-192)
[2018-02-10] MEDS ORDERED: Levothyroxine 50 MCG Tablet PO SCH (06:00)
[2018-02-10] MEDS: Heparin - SQ 10,000 UNITS/ML Vial SQ SCH (06:10)
[2018-02-10 08:27] VITALS: RESP 16
--- NOTE | 2018-02-10 08:55 | P.HP ---
History of Present Illness Primary Care Physician: Adrian Jansen MD Chief Complaint: Chest pain History of Present Illness: This is a 57-year-old female patient with a known medical history of hypothyroidism, COPD, history of tobacco abuse who presented to the ED with complaints of chest pain. Patient states that she has been recently diagnosed with sinusitis, has been prescribed amoxicillin which has been ineffective in treating her symptoms, therefore she was switched to azithromycin by her PCP. She does complain of some chest tightness and sinus/chest congestion. Patient states that the chest tightness occurs in the left chest, denies any radiation of pain, nausea, vomiting, shortness of breath or sweating with the pain, states that the pain occurs only with strenuous activity, alleviated with rest. She denies ever having this pain in the past, denies ever having a stress test in the past. Does have a history of COPD, quit smoking about a 1 year ago. Denies any fevers, headache, ab pain, n/v/d or dysuria. - Diagnosis (1) Chest pain (2) Sinusitis Review of Systems All other systems reviewed negative except as stated in HPI PMFSH - History History Provided By: Patient - Medical History Medical History: Medical History (Last Reviewed 02/10/18 @ 08:[address]) COPD (chronic obstructive pulmonary disease) Hypothyroidism SVT (supraventricular tachycardia) - Surgical History Surgical History: Surgical History (Last Reviewed 02/10/18 @ 08:[address]) H/O tubal ligation H/O prior ablation treatment - Family History Family History: Family History (Last Updated 02/10/18 @ 09:[address]) Other Family history in first degree relatives is unremarkable - Social History I have reviewed the patient's Social History: Yes - Tobacco History Second Hand Smoke Exposure: No Tobacco Use In Past 30 Days: No Smoking Status: Former smoker Tobacco Type: Cigarettes - Alcohol History How Often Do You Have a Drink Containing Alcohol: Never - Substance Use History Substance History: No History of Abuse - Travel History Recent Travel in the [place] Within the Last 8 Weeks: No Recent Travel Out of the Country Within the Last 8 Weeks: No - Immunization History Tetanus Immunization: Unsure Medications and Allergies Active Medications: Active Medications Acetaminophen (Tylenol) 500 mg PO Q4H PRN PRN Reason: HEADACHE Last Admin: 02/10/18 03:34 Dose: 500 mg Hydrocodone Bitart/Acetaminophen ([place] 7.5/325) 1 tab PO Q4H PRN PRN Reason: PAIN SCALE 1 TO 7 Last Admin: 02/10/18 06:16 Dose: 1 tab Famotidine (Pepcid) 20 mg PO BID [facility] Heparin Sodium (Porcine) (Heparin Inj) 5,000 units SQ Q8H [facility] Last Admin: 02/10/18 06:10 Dose: 5,000 units Hydroxyzine HCl (Atarax) 25 mg PO DAILY [facility] Levothyroxine Sodium (Synthroid) 50 mcg PO DAILY@0600 [facility] Last Admin: 02/10/18 06:10 Dose: 50 mcg Morphine Sulfate (Morphine Inj) 2 mg IV.PUSH Q4H PRN PRN Reason: PAIN 8-10 Nitroglycerin (Nitrostat Sl) 0.4 mg SL Q5M PRN PRN Reason: CHEST PAIN Ondansetron HCl (Zofran Inj) 4 mg IV.PUSH Q6H PRN PRN Reason: NAUSEA Sodium Chloride (Ns Flush) 2 ml IV.FLUSH UNSCH PRN PRN Reason: FLUSH AFTER USING IV ACCESS Sodium Chloride (Ns Flush) 2 ml IV.FLUSH BID YANA Sodium Chloride (Ns Flush) 2 ml IV.FLUSH PRN PRN PRN Reason: FLUSH AFTER USING IV ACCESS Temazepam (Restoril) 15 mg PO HS PRN PRN Reason: INSOMNIA Allergies Allergy/AdvReac Type Severity Reaction Status Date / Time No Known Allergies Allergy Verified 02/09/18 21:49 Home Medications Medication Instructions Recorded Confirmed Type hydroxyzine HCl 25 mg PO DAILY 10/23/17 02/09/18 History levothyroxine 50 mcg PO DAILY 10/23/17 02/09/18 History docusate sodium 50 mg DIRECTED 02/09/18 02/09/18 History nicotine (polacrilex) 4 mg DAILY 02/09/18 02/09/18 History Exam Vital signs: Vital Signs 02/09/18 20:54 02/09/18 21:47 02/09/18 22:40 Temperature 97.9 F Pulse Rate 90 85 80 Respiratory Rate 18 18 Blood Pressure 117/78 119/77 Pulse Oximetry 97 99 99 02/10/18 00:21 02/10/18 00:35 02/10/18 00:40 Temperature 97.9 F 96.4 F L Pulse Rate 79 73 81 Respiratory Rate 18 18 Blood Pressure 113/71 128/70 Pulse Oximetry 97 100 02/10/18 03:00 02/10/18 04:00 02/10/18 07:10 Temperature 96.1 F L Pulse Rate 69 Respiratory Rate 18 18 Blood Pressure 108/60 Pulse Oximetry 99 95 02/10/18 07:33 02/10/18 08:26 Temperature 97.8 F Pulse Rate 94 H Respiratory Rate 16 Blood Pressure 122/63 Pulse Oximetry 95 95 Intake & Output 02/09/18 02/10/18 02/10/18 18:59 06:59 18:59 Intake Total 500 / 500 Balance 500 / 500 Weight 51.5 kg Intake: IV 500 / 500 NS Inj 500 ML @ 500 mls/hr IV. 500 / 500 SIG ONCE ONE Rx#:[id number] Oral 0 / 0 Other: # Voids 2 Weight On Admission 50.802 kg Narrative: GENERAL: Well-developed, well-nourished patient in [facility]. SKIN: Warm and dry. No rash. HEAD: Normocephalic. Atraumatic. EYES: Pupils equal and round. No scleral icterus. No injection or drainage. ENT: No nasal bleeding or discharge. Mucous membranes pink and moist. NECK: Supple. Trachea midline. CARDIOVASCULAR: Regular rate and rhythm. S1, S2 noted. No murmur appreciated. No reproducible chest discomfort. RESPIRATORY: No accessory muscle use. Clear to auscultation. Breath sounds equal bilaterally. GASTROINTESTINAL: Abdomen soft, non-tender, nondistended. Normoactive bowel sounds x4. MUSCULOSKELETAL: No obvious deformities. Extremities without clubbing, cyanosis , or edema. NEUROLOGICAL: Awake and alert. No obvious cranial nerve deficits. Motor grossly within normal limits. 5/5 muscle strength in bilateral upper and lower extremities. Normal speech. PSYCHIATRIC: Appropriate mood and affect; insight and judgment normal. Results - Labs CBC & Chem 7: 02/09/18 21:18 02/09/18 21:18 Labs: Laboratory Results - last 24 hr 02/09/18 02/09/18 02/09/18 21:18 21:18 21:18 CBC w Diff Auto diff final WBC 5.7 RBC 4.32 Hgb 13.0 Hct 39.8 MCV 92.2 MCH 30.1 MCHC 32.7 RDW 12.5 Plt Count 234 MPV 8.7 Neut % (Auto) 56.1 Lymph % (Auto) 34.0 [place] % (Auto) 7.5 Eos % (Auto) 1.2 Baso % (Auto) 1.2 Neut # (Auto) 3.2 Lymph # (Auto) 1.9 [place] # (Auto) 0.4 Eos # (Auto) 0.1 Baso # (Auto) 0.1 WBC Differential . Differential Comment . PT INR APTT D-Dimer Quant (PE/DVT) Sodium 142 Potassium 3.5 Chloride 107 Carbon Dioxide 28.4 Anion Gap 7 BUN 11 Creatinine 0.96 Estimated GFR 60 L Random Glucose 105 Calcium 8.2 L Magnesium Total Bilirubin 0.3 AST 20 ALT 25 Alkaline Phosphatase 51 Total Creatine Kinase 67 Troponin I Less than 0.02 L B-Natriuretic Peptide 4 Total Protein 6.6 Albumin 3.5 Lipase 194 02/09/18 02/09/18 02/09/18 21:18 21:18 21:18 CBC w Diff WBC RBC Hgb Hct MCV MCH MCHC RDW Plt Count MPV Neut % (Auto) Lymph % (Auto) [place] % (Auto) Eos % (Auto) Baso % (Auto) Neut # (Auto) Lymph # (Auto) [place] # (Auto) Eos # (Auto) Baso # (Auto) WBC Differential Differential Comment PT 11.1 INR 1.1 APTT 28.0 D-Dimer Quant (PE/DVT) 0.42 Sodium Potassium Chloride Carbon Dioxide Anion Gap BUN Creatinine Estimated GFR Random Glucose Calcium Magnesium 1.9 Total Bilirubin AST ALT Alkaline Phosphatase Total Creatine Kinase Troponin I B-Natriuretic Peptide Total Protein Albumin Lipase 02/10/18 02/10/18 00:18 03:30 CBC w Diff WBC RBC Hgb Hct MCV MCH MCHC RDW Plt Count MPV Neut % (Auto) Lymph % (Auto) [place] % (Auto) Eos % (Auto) Baso % (Auto) Neut # (Auto) Lymph # (Auto) [place] # (Auto) Eos # (Auto) Baso # (Auto) WBC Differential Differential Comment PT INR APTT D-Dimer Quant (PE/DVT) Sodium Potassium Chloride Carbon Dioxide Anion Gap BUN Creatinine Estimated GFR Random Glucose Calcium Magnesium Total Bilirubin AST ALT Alkaline Phosphatase Total Creatine Kinase 55 52 Troponin I Less than 0.02 L Less than 0.02 L B-Natriuretic Peptide Total Protein Albumin Lipase - Imaging Impressions Chest X-Ray 02/09/18 21:10 CONCLUSION: The lungs are clear. Caprini VTE Risk Assessment Caprini VTE Risk Assessment: No/Low Risk (score <= 1) Caprini Risk Assessment Model: Point Value = 1 Point Value = 2 Point Value = 3 Point Value = 5 Age 41-60 Minor surgery BMI > 25 kg/m2 Swollen legs Varicose veins or History of unexplained or recurrent spontaneous Oral contraceptives or hormone replacement Sepsis (< 1 month) Serious lung disease, including pneumonia (< 1 month) Abnormal pulmonary function Acute myocardial infarction Congestive heart failure (< 1 month) History of inflammatory bowel disease Medical patient at bed rest Age 61-74 Arthroscopic surgery Major open surgery (> 45 min) Laparoscopic surgery (> 45 min) Malignancy Confined to bed (> 72 hours) Immobilizing plaster cast Central venous access Age >= 75 History of VTE Family history of VTE Factor V Leiden Prothrombin [id number] Lupus anticoagulant Anticardiolipin antibodies Elevated serum homocysteine Heparin-induced thrombocytopenia Other congenital or acquired thrombophilia Stroke (< 1 month) Elective arthroplasty Hip, pelvis, or leg fracture Acute spinal cord injury (< 1 month) Prophylaxis Regimen: Total Risk Factor Score Risk Level Prophylaxis Regimen 0-1 Low Early ambulation 2 Moderate Order ONE of the following: *Sequential Compression Device (SCD) *Heparin 5000 units SQ BID 3-4 Higher Order ONE of the following medications: *Heparin 5000 units SQ TID *Enoxaparin/Lovenox 40 mg SQ daily (WT < 150 kg, CrCl > 30 mL/min) *Enoxaparin/Lovenox 30 mg SQ daily (WT < 150 kg, CrCl > 10-29 mL/min) *Enoxaparin/Lovenox 30 mg SQ BID (WT < 150 kg, CrCl > 30 mL/min) AND/OR *Sequential Compression Device (SCD) 5 or more Highest Order ONE of the following medications: *Heparin 5000 units SQ TID (Preferred with Epidurals) *Enoxaparin/Lovenox 40 mg SQ daily (WT < 150 kg, CrCl > 30 mL/min) *Enoxaparin/Lovenox 30 mg SQ daily (WT < 150 kg, CrCl > 10-29 mL/min) *Enoxaparin/Lovenox 30 mg SQ BID (WT < 150 kg, CrCl > 30 mL/min) AND *Sequential Compression Device (SCD) Assessment and Plan - Assessment (1) Chest pain Code(s): R07.9 - Chest pain, unspecified Status: Acute (2) Sinusitis Code(s): J32.9 - Chronic sinusitis, unspecified Status: Acute - Plan This is a 57-year-old female patient with: Chest pain, atypical -Patient has been admitted to the chest pain center for observation. -Serial EKGs and serial troponins have been ordered for ruling out ACS purposes. Troponin trend negative. -EKG reviewed showing NSR with controlled heart rate, no ST changes to indicate ischemia. -Continued on cardiac telemetry overnight, no arrhythmias noted. -Risk factors for ACS include smoking history. Denies ever having a stress test in the past. -All chest discomfort is resolved. -Pain control with Morphine IV, [place] and Nitro as needed per pain scale. -Will undergo a cardiac treadmill stress test to further rule out any ischemia. -Patient is stable at this time and agreeable to the plan. Sinusitis -Will continue outpatient antibiotic, Azithromycin. -Stable at this time. -CBC and BMP reviewed, essentially unremarkable. -CXR reviewed without any acute findings. -Comfortable on RA. Hypothyroidism -Continue home levothyroxine. DVT Prophylaxis: SCDs. (1) Chest pain Qualifiers: Chest pain type: unspecified Qualified Code(s): R07.9 - Chest pain, unspecified
[2018-02-10] MEDS ORDERED: Famotidine 20 MG Tablet PO SCH (09:00)
[2018-02-10 11:13] VITALS: BP 109/69; PULSE 72; TEMP 96.4
--- NOTE | 2018-02-10 11:21 | TR ---
Date Performed: 02/10/2018 Time Performed: 09:40:09 DOCTOR: David Sanchez DRUG LIST: CLINICAL HISTORY: REASON FOR TEST: REASON FOR ENDING: OBSERVATION: CONCLUSION: Vignesh protocol completed test stopped secondary to reaching target heart rate, and p oor exercise tolerance. Some shortness of breath. Denies any reproducible chest discomfort. No ST oscar nges seen. Good BP response. Recovery quick although seeing some PACs and delayed beats, does complai n of some "fluttering" in her chest. Maximum TN=166 Target HR Bwvugeee=954.0% Maximum GN=489/90 Total Exercise Time=3:00 COMMENTS:
--- NOTE | 2018-02-10 18:03 | ECG ---
Date Performed: 02/09/2018 Time Performed: 21:22:14 PTAGE: 57 years EKG: Sinus rhythm POSSIBLE LEFT ATRIAL ENLARGEMENT POSSIBLE RIGHT VENTRICULAR CONDUCTION DELAY BORDERLINE ECG PREVIOUS TRACING : 10/23/2017 17.52 Since the previous tracing, no significant change noted DOCTOR: [place] Alexandre Interpretating Date/Time 02/10/2018 18:01:51
--- NOTE | 2018-02-10 18:03 | ECG ---
Date Performed: 02/10/2018 Time Performed: 00:17:19 PTAGE: 57 years EKG: Sinus rhythm POSSIBLE LEFT ATRIAL ENLARGEMENT POSSIBLE RIGHT VENTRICULAR CONDUCTION DELAY BORDERLINE ECG PREVIOUS TRACING : 02/09/2018 21.22 Since the previous tracing, no significant change noted DOCTOR: [place] Alexandre Interpretating Date/Time 02/10/2018 18:02:15
--- NOTE | 2018-02-10 18:04 | ECG ---
Date Performed: 02/10/2018 Time Performed: 04:01:14 PTAGE: 57 years EKG: Sinus rhythm POSSIBLE RIGHT VENTRICULAR CONDUCTION DELAY BORDERLINE ECG PREVIOUS TRACING : 02/10/2018 @ 00.17.19 Since the previous tracing, no significant change note d DOCTOR: [place] Alexandre Interpretating Date/Time 02/10/2018 18:03:01
== END 2018-02-10 12:45 | disposition home or self-care (01) ==
LOC: PHED 20:50 → PHEDA 20:50 → PH3 02-10 00:28
PROVIDERS: ADMIT Hospitalist; ATTEND Hospitalist
DX: R07.9 Chest pain, unspecified; I47.1 Supraventricular tachycardia; Z87.891 Personal history of nicotine dependence; J32.9 Chronic sinusitis, unspecified; E03.9 Hypothyroidism, unspecified; Z79.890 Hormone replacement therapy; Z98.51 Tubal ligation status; J44.9 Chronic obstructive pulmonary disease, unspecified